=== PATIENT | male | born 1980 | race Asian ===

== ENCOUNTER 2018-11-05 19:02 | Emergency (ER) | payer OTHER ==
[2018-11-05 19:10] VITALS: BP 120/78
[2018-11-05] MEDS ORDERED: DIPH/PERTUSS(ACELL)/TETANUS VAC/PF 0.5 ML SYR (>=10YO) IM ONE (20:09)
[2018-11-05] MEDS ORDERED: RABIES VACCINE (PCEC)/PF 2.5 UNIT/1 ML KIT IM ONE (20:09)
[2018-11-05] MEDS ORDERED: AMOXICILLIN TRIHYD 250 MG CAPSULE PO ONE (20:09)
[2018-11-05] MEDS ORDERED: RABIES IMMUNE GLOBULIN INJ/PF 300 UNIT/2 ML SDV IM ONE (20:09)
[2018-11-05] MEDS ORDERED: AMOXICILLIN TR/POT CLAVULANATE 500-125 MG TAB PO ONE (20:09)
--- NOTE | 2018-11-05 20:13 | ER Document Report ---
HPI - HPI Patient complains to provider of: Cat scratch Time Seen by Provider: 11/05/18 20:01 Onset: Other - 2 days ago Quality of pain: No pain Pain Level: Denies Context: Patient states that he was attacked by a cat outside of his place of employment 2 days ago. Patient states that he received a call from animal [employer] but the cat is rapid and that he would need to come here for rabies vaccination series. Patient denies any complaints other than abrasions to the leg that seem to be healing without problem. Associated Symptoms: denies: Fever, Headache Exacerbated by: Denies Relieved by: Denies Similar symptoms previously: No Recently seen / treated by doctor: No - ROS ROS below otherwise negative: Yes Systems Reviewed and Negative: Yes All other systems reviewed and negative - CONSTITUTIONAL Constitutional: DENIES: Fever, Chills - NEURO Neurology: DENIES: Headache - DERM Skin Problems: Abrasion Past Medical History - General Information source: Patient - Social History Smoking Status: Never Smoker Frequency of alcohol use: None Drug Abuse: None Occupation: [employer] Family History: Reviewed & Not Pertinent Patient has suicidal ideation: No Patient has homicidal ideation: No - Medical History Medical History: Negative Renal/ Medical History: Denies: Hx Peritoneal Dialysis Surgical Hx: Negative - Immunizations Hx Diphtheria, Pertussis, Tetanus Vaccination: No Vertical Provider Document - CONSTITUTIONAL Agree With Documented VS: Yes Exam Limitations: No Limitations General Appearance: WD/WN, No Apparent Distress - INFECTION CONTROL TRAVEL OUTSIDE OF THE [place] IN LAST 30 DAYS: No - HEENT HEENT: Atraumatic, Normocephalic - NECK Neck: Normal Inspection, Supple - RESPIRATORY Respiratory: Breath Sounds Normal, No Respiratory Distress - CARDIOVASCULAR Cardiovascular: Regular Rate, Regular Rhythm - MUSCULOSKELETAL/EXTREMETIES Musculoskeletal/Extremeties: MAEW, FROM - NEURO Level of Consciousness: Awake, Alert, Appropriate Motor/Sensory: No Motor Deficit - DERM Integumentary: Warm, Dry Notes: Abrasions to lateral aspect of right knee, no surrounding erythema. Course - Vital Signs Vital signs: Temp Pulse Resp BP Pulse Ox 98.1 F 98 14 120/78 98 11/05/18 19:09 11/05/18 19:09 11/05/18 19:09 11/05/18 19:09 11/05/18 19:09 Discharge - Discharge Clinical Impression: Cat scratch, Rabies exposure Condition: Stable Disposition: HOME, SELF-CARE Instructions: Animal Bites ([facility]), Augmentin ([facility]), Rabies Prophyllaxis ([facility]), Tetanus Immunization Given ([facility]) Additional Instructions: Return immediately for any new or worsening symptoms Followup with your primary care provider, call tomorrow to make a followup appointment Return on November 08, November 12 and November 19 for additional rabies vaccination shots. Prescriptions: Amox Tr/Potassium Clavulanate [Augmentin 875-125 Tablet] 1 tab PO BID 5 Days tablet [facility] - Follow up as needed
== END 2018-11-05 20:59 | disposition home or self-care (01) ==
LOC: ER 19:02
DX: S80.211A Abrasion, right knee, initial encounter (principal); W55.03XA Scratched by cat, initial encounter; Z29.14 Encounter for prophylactic rabies immune globulin; Z20.2 Contact with and (suspected) exposure to infections with a predominantly sexual mode of transmission
CPT/HCPCS: 99283; 96372; 90471 ×2; 90715; 90675; 90376; J3490